=== PATIENT | female | born 1955 | race Caucasian/White ===

== ENCOUNTER 2022-06-09 01:19 | Emergency (ER) | payer MEDICARE ==
[~2022-06-09] VITALS: Ht 167.6 cm; Wt 110.5 kg
[2022-06-09] MEDS ORDERED: HYDROcodone/acetaminophen 10/325mg tab PO ONE (03:10)
[2022-06-09] MEDS ORDERED: ketorolac trometh. 30mg/ml inj. IM ONE (03:10)
[2022-06-09 03:55] VITALS: BP 153/67
== END 2022-06-09 03:57 | disposition home or self-care (01) ==
LOC: ER 01:20
DX: M79.602 Pain in left arm (principal); M79.601 Pain in right arm; M54.10 Radiculopathy, site unspecified
CPT/HCPCS: 93005; 96372; 99284; J1885; 99285